=== PATIENT | male | born 1955 | race Caucasian/White ===

== ENCOUNTER 2018-03-07 21:22 | Inpatient (IN) ==
[2018-03-07] MEDS ORDERED: Nitroglycerin 25 MG/250 ML INFUS..BTL IVC ONE (21:27)
[2018-03-07] MEDS ORDERED: Furosemide 40 MG in 0.9 % Sodium Chloride 50 ML IVPB STA ×2 (21:36→22:32)
--- NOTE | 2018-03-07 21:39 | Emergency Department Note ---
Disposition Clinical Impression: Flash pulmonary edema, Shortness of breath Disposition: Admitted As Inpatient Condition: Fair Time of Disposition: 23:25 SOB HPI - General Time Seen by Provider: 03/07/18 21:33 Source: patient, EMS Mode of arrival: EMS Limitations: no limitations Nursing Notes Reviewed: Yes Vital Signs Reviewed: Yes - History of Present Illness 62-year-old male history of congestive heart failure, pacemaker, atrial fibrillation on Xarelto presents emergency department via EMS for difficulty in breathing. Patient was at [employer] game in approximately 2 hours prior to arrival began developing significant shortness of breath. He is reported to have foaming at the mouth with frothy sputum. Patient was evaluated immediately in the trauma resuscitation room. He was reported to be hypoxic 85% on non- rebreather. He had administered to nitroglycerin tablets by himself and took for tablets of 81 mg aspirin. He reports a similar history in the past and was given Lasix. Patient denies any chest pain at this time. He denies any recent illness. States his blood pressures have been well-controlled recently. No recent changes to his diet. She has leg swelling that appears at baseline. Concern for flash pulmonary edema patient will be placed on BiPAP and nitroglycerin drip as long as blood pressure tolerates. Pt Subjective Complaint: shortness of breath - Related Data Home Medications Medication Instructions Recorded Confirmed Amiodarone [Cordarone] 100 mg PO DAILY 01/09/15 03/07/18 Atorvastatin [Lipitor] 40 mg PO HS 01/09/15 03/07/18 Carvedilol 12.5 mg PO BID 01/09/15 03/07/18 Furosemide [Lasix] 20 mg PO DAILY 01/09/15 03/07/18 Losartan [Cozaar] 50 mg PO BID 01/09/15 03/07/18 Nitroglycerin [Nitrostat] 0.4 mg SL Q5-6MIN PRN 01/09/15 03/07/18 Rivaroxaban [Xarelto] 20 mg PO DAILY 01/09/15 03/07/18 Spironolactone [Aldactone] 12.5 mg PO DAILY 01/09/15 03/07/18 Allergies Allergy/AdvReac Type Severity Reaction Status Date / Time Penicillins [PCN] Allergy Rash Verified 01/09/15 11:28 lisinopril AdvReac Cough Verified 01/09/15 11:28 All systems ED: reviewed and negative except as stated. Review of Systems: As Per HPI Constitutional: Denies: fever, chills ENT ED: Denies: congestion Cardiovascular: Denies: chest pain Respiratory: Reports: dyspnea. Denies: cough Gastrointestinal: Denies: abdominal pain, nausea, vomiting Genitourinary: Denies: dysuria Integumentary: Denies: rash, abrasion Neurological: Denies: headache Past Medical History - Past Medical History Attestation: Yes The following information was validated with the patient. Source: patient Medical history: Reports: atrial fibrillation, cardiomyopathy, diabetes, hypertension Surgical history: Reports: appendectomy Psychiatric history: Reports: no psych history - Social History Smoking Status: Never smoker Smokeless Tobacco Status: No Alcohol use: Reports: none Drug use: Reports: none Physical Exam - General Limitations: no limitations General appearance: alert, in distress (Respiratory), obese - Head Head exam: atraumatic, normocephalic, normal inspection - Eye Eye exam: Present: normal appearance, PERRL, EOMI - ENT ENT exam: normal exam, normal oropharynx, mucous membranes moist - Neck Neck exam: Present: normal inspection, full ROM, trachea midline - Chest Chest inspection: Present: normal inspection, symmetric chest wall rise, other (Pacemaker left chest wall) - Respiratory Respiratory exam: Present: respiratory distress, other (Crackles diffusely parker ateral) - Cardiovascular Cardiovascular exam: Present: normal rhythm, tachycardia, normal heart sounds - Expanded Cardiovascular Exam Peripheral pulses: 2+: radial (R), radial (L) - Abdominal Exam Abdominal exam: Present: soft (Obese), Non-Tender, normal bowel sounds. Absent: tenderness, distention, guarding, rebound, rigidity - Extremities Exam Extremities exam: Present: normal inspection, full ROM, pedal edema (Symmetrical bilaterally, pitting). Absent: tenderness - Back Exam Back exam: Present: normal inspection, full ROM. Absent: tenderness - Neurological Exam Neurological exam: Present: alert, oriented X3 - Psychiatric Psychiatric exam: Present: normal affect, normal mood - Skin Skin exam: Present: intact, normal color, diaphoresis Course Course Narrative: Patient presents with his sudden onset shortness of breath 2 hours prior to arrival. Suspect flash pulmonary edema. Patient was placed on BiPAP. Nitroglycerin drip initiated at 50. Will continue to watch his blood pressure and treat his symptoms. Workup including troponin, EKG labs BNP and chest x- ray. - Reevaluation(s) Reevaluation #1: After titration with nitroglycerin patient's symptoms are improving. Patient appears significantly improved. Patient was also given Lasix. He is tolerating the BiPAP. Patient will be admitted for flash pulmonary edema. He has had already taken aspirin at home and was not administered any additional here. Review of his labs shows elevated BNP 500. The lactate is elevated 4.1 with elevation of the troponin 0.1 likely due to demand ischemia. He denies any chest pain. Will continue to monitor. - Consultations Consultation #1: Spoke with on-call hospitalist kusum Pérez to admit for flash pulm edema. No further orders at this time Vital Signs Respiratory Rate 30 03/07/18 21:30 Blood Pressure 149/111 03/07/18 21:30 O2 Sat by Pulse Oximetry 94 03/07/18 21:30 Temperature 97.6 F 03/07/18 21:33 Pulse Rate 85 03/07/18 23:54 Respiratory Rate 24 03/07/18 23:54 Blood Pressure 91/67 03/07/18 23:54 O2 Sat by Pulse Oximetry 99 03/07/18 23:54 Oxygen Delivery Oxygen Delivery Bipap Shortness of Breath/Dyspnea - MDM Narrative Medical decision making narrative: Patient was discussed with my attending physician who agrees with ED management and final disposition. They independently evaluated the patient. Please refer to their attestation to this encounter for additional information. This note was generated by [employer] voice recognition software and as a result grammatical or spelling errors may occur using this program. - Medical Records Medical records reviewed: Yes I reviewed the patient's medical records. - Lab Data Lab results reviewed: Yes I reviewed the patient's lab results. Result diagrams: 03/07/18 22:00 03/07/18 22:00 Lab Results 03/07/18 03/07/18 03/07/18 Range/Units 22:00 22:00 22:00 WBC 13.5 H (4.3-11.1) K/mcL RBC 5.58 H (4.19-5.50) M/mcL Hgb 18.2 H (12.9-16.9) g/dL Hct 54.9 H (37.5-50.1) % MCV 98.4 (83.0-100.0) fL MCH 32.6 (28.0-33.3) pg MCHC 33.2 (31.6-35.5) g/dL RDW 12.8 (11.5-14.5) % Plt Count 198 (140-400) K/mcL MPV 10.7 (9.4-12.4) fL Immature Gran % 1.0 (0-4) % Seg Neutrophils % 67.4 % Lymphocytes % 25.2 % Monocytes % 5.8 % Eosinophils % 0.0 % Basophils % 0.6 % Neutrophils # 9.1 H (1.6-8.9) K/mcL Lymphocytes # 3.4 (0.6-4.6) K/mcL Monocytes # 0.8 (0.0-1.3) K/mcL Eosinophils # 0.0 (0.0-0.6) K/mcL Basophils # 0.1 (0.0-0.2) K/mcL Nucleated RBCs/100 WBC 0.1 H (0) /100 WBC Sodium 138 (136-145) mEq/L Potassium 4.0 (3.5-5.1) mEq/L Chloride 105 (98-107) mEq/L Carbon Dioxide 22 L (23-29) mEq/L BUN 25 H (8-23) mg/dL Creatinine 1.34 H (0.70-1.30) mg/dL Est GFR ( Amer) > 60 (> 60) Est GFR (Non-Af Amer) 54 L (> 60) BUN/Creatinine Ratio 19 (6-26) Glucose 303 H (70-105) mg/dL Calculated Osmolality 302 H (280-300) Lactic Acid 4.1 H* (0.5-2.2) mmol/L Calcium 9.5 (8.6-10.3) mg/dL Troponin I 0.10 H* (< 0.04) ng/mL B-Natriuretic Peptide (Less than 100) pg/mL Urine Color (Yellow) Urine Clarity (Clear) Urine pH (5.0-8.0) pH Units Ur Specific [place] (1.010-1.025) Urine Protein (Neg-Trace) mg/dL Urine Glucose (UA) (Normal) mg/dL Urine Ketones (Negative) mg/dL Urine Blood (Negative) Urine Nitrite (Negative) Urine Bilirubin (Negative) Urine Urobilinogen (Normal) mg/dL Ur Leukocyte Esterase (Negative) Urine Microscopic RBC (0-3) per hpf Urine Microscopic WBC (0-3) per hpf Ur Squamous Epith Cells (None-Few) per lpf Urine Bacteria (None-Few) per hpf Hyaline Casts (None-Few) per lpf Ur Culture Indicated? (NO) 03/07/18 03/07/18 03/07/18 Range/Units 22:00 22:16 23:50 WBC (4.3-11.1) K/mcL RBC (4.19-5.50) M/mcL Hgb (12.9-16.9) g/dL Hct (37.5-50.1) % MCV (83.0-100.0) fL MCH (28.0-33.3) pg MCHC (31.6-35.5) g/dL RDW (11.5-14.5) % Plt Count (140-400) K/mcL MPV (9.4-12.4) fL Immature Gran % (0-4) % Seg Neutrophils % % Lymphocytes % % Monocytes % % Eosinophils % % Basophils % % Neutrophils # (1.6-8.9) K/mcL Lymphocytes # (0.6-4.6) K/mcL Monocytes # (0.0-1.3) K/mcL Eosinophils # (0.0-0.6) K/mcL Basophils # (0.0-0.2) K/mcL Nucleated RBCs/100 WBC (0) /100 WBC Sodium (136-145) mEq/L Potassium (3.5-5.1) mEq/L Chloride (98-107) mEq/L Carbon Dioxide (23-29) mEq/L BUN (8-23) mg/dL Creatinine (0.70-1.30) mg/dL Est GFR ( Amer) (> 60) Est GFR (Non-Af Amer) (> 60) BUN/Creatinine Ratio (6-26) Glucose (70-105) mg/dL Calculated Osmolality (280-300) Lactic Acid 3.1 H (0.5-2.2) mmol/L Calcium (8.6-10.3) mg/dL Troponin I (< 0.04) ng/mL B-Natriuretic Peptide 539 H (Less than 100) pg/mL Urine Color Yellow (Yellow) Urine Clarity Clear (Clear) Urine pH 5.5 (5.0-8.0) pH Units Ur Specific [place] 1.016 (1.010-1.025) Urine Protein Negative (Neg-Trace) mg/dL Urine Glucose (UA) Normal (Normal) mg/dL Urine Ketones Negative (Negative) mg/dL Urine Blood Moderate H (Negative) Urine Nitrite Negative (Negative) Urine Bilirubin Negative (Negative) Urine Urobilinogen Normal (Normal) mg/dL Ur Leukocyte Esterase Negative (Negative) Urine Microscopic RBC 15-30 H (0-3) per hpf Urine Microscopic WBC 0-3 (0-3) per hpf Ur Squamous Epith Cells Few (None-Few) per lpf Urine Bacteria None Seen (None-Few) per hpf Hyaline Casts None Seen (None-Few) per lpf Ur Culture Indicated? NO (NO) - Radiology Data Radiology results reviewed: Yes I reviewed the patient's radiology results. Chest X-Ray 03/07/18 21:35 IMPRESSION: 1. Diffuse lung consolidation and vascular indistinctness compatible with pulmonary edema. 2. Superimposed left basilar atelectasis or airspace disease. D/ / 03/07/2018 22:53:36 Austen Hwang MD / olivia Interpreting Provider: Austen Hwang MD - EKG Data EKG attestation: Yes I reviewed and interpreted this EKG. EKG results narrative: EKG performed 2233 ventricular paced rhythm 101 beats per minute, no Sgarbossa criteria. Attestation Statement - Attestation Attestation: I, Zachery Babin DO, examined this patient [id number] and my medical decision-making was reviewed with Fabrice Roblero DO , Resident Physician. I agree with the documented findings, disposition and treatment plan as described except to the extent set forth below. Please see my progress notes for details.
[2018-03-07] MEDS ORDERED: Furosemide 40 MG/4 ML VIAL ONE ×2 (21:40→22:40)
[2018-03-07] MEDS: Nitroglycerin 25 MG/250 ML INFUS..BTL IVC SCH (21:45)
[2018-03-07] MEDS ORDERED: Nitroglycerin 0.4 MG TAB.SUBL SL ONE (21:47)
[2018-03-07 22:13] LABS: Basophils # 0.1 K/mcL (0.0-0.2); Basophils % 0.6 %; Hematocrit 54.9 % (37.5-50.1); Hemoglobin 18.2 g/dL (12.9-16.9); Lymphocytes # 3.4 K/mcL (0.6-4.6); Lymphocytes % 25.2 %; Mean Corpuscular HGB Conc 33.2 g/dL (31.6-35.5); Mean Corpuscular Hemoglobin 32.6 pg (28.0-33.3); Mean Corpuscular Volume 98.4 fL (83.0-100.0); Mean Platelet Volume 10.7 fL (9.4-12.4); Monocytes # 0.8 K/mcL (0.0-1.3); Monocytes % 5.8 %; Neutrophils # 9.1 K/mcL (1.6-8.9); Nucleated Red Blood Cells 0.1 /100 WBC (0); Platelet Count 198 K/mcL (140-400); Red Blood Count 5.58 M/mcL (4.19-5.50); Red Cell Distribution Width 12.8 % (11.5-14.5); Segmented Neutrophils % 67.4 %
[2018-03-07 22:26] LABS: Bilirubin,Urine Negative (Negative); Blood,Urine Moderate (Negative); Clarity,Urine Clear (Clear); Color,Urine Yellow (Yellow); Glucose,Urine (UA) Normal (Normal); Ketones,Urine Negative (Negative); Leukocyte Esterase,Urine Negative (Negative); Nitrite,Urine Negative (Negative); PH,Urine 5.5 pH Units (5.0-8.0); Protein,Urine Negative (Neg-Trace); Specific Gravity,Urine 1.016 (1.010-1.025); Urobilinogen,Urine Normal (Normal)
[2018-03-07 22:29] LABS: Bacteria,Urine None Seen per hpf (None-Few); Hyaline Casts,Urine None Seen per lpf (None-Few); RBC,Urine 15-30 per hpf (0-3); Squamous Epithelial Cell,Urine Few per lpf (None-Few); WBC,Urine 0-3 per hpf (0-3)
[2018-03-07 22:34] LABS: BUN/Creatinine Ratio 19 (6-26); Blood Urea Nitrogen 25 mg/dL (8-23); Calcium 9.5 mg/dL (8.6-10.3); Carbon Dioxide 22 mEq/L (23-29); Chloride 105 mEq/L (98-107); Glucose 303 mg/dL (70-105); Osmolality,Calculated 302 (280-300); Sodium 138 mEq/L (136-145); eGFR For Non-African Americans 54 (> 60)
[2018-03-07] MEDS ORDERED: Furosemide 40 MG/4 ML VIAL IVP ONE (22:40)
--- NOTE | 2018-03-07 22:58 | Emergency Department Note ---
Disposition Clinical Impression: Flash pulmonary edema, Shortness of breath Disposition: Admitted As Inpatient Condition: Fair Referrals: NONE,PCP [Non-Partnered Physician] - Time of Disposition: 22:59 General Adult HPI - General Chief complaint: ED Shortness of Breath/Dyspnea Time Seen by Provider: 03/07/18 21:33 Source: patient, EMS Mode of arrival: EMS Limitations: no limitations - History of Present Illness Pain Scale: 0 - Related Data Home Medications Medication Instructions Recorded Confirmed Amiodarone [Cordarone] 100 mg PO DAILY 01/09/15 03/07/18 Atorvastatin [Lipitor] 40 mg PO HS 01/09/15 03/07/18 Carvedilol 12.5 mg PO BID 01/09/15 03/07/18 Furosemide [Lasix] 20 mg PO DAILY 01/09/15 03/07/18 Losartan [Cozaar] 50 mg PO BID 01/09/15 03/07/18 Nitroglycerin [Nitrostat] 0.4 mg SL Q5-6MIN PRN 01/09/15 03/07/18 Rivaroxaban [Xarelto] 20 mg PO DAILY 01/09/15 03/07/18 Spironolactone [Aldactone] 12.5 mg PO DAILY 01/09/15 03/07/18 Allergies Allergy/AdvReac Type Severity Reaction Status Date / Time Penicillins [PCN] Allergy Rash Verified 01/09/15 11:28 lisinopril AdvReac Cough Verified 01/09/15 11:28 Constitutional: Denies: fever, chills ENT ED: Denies: congestion Cardiovascular: Denies: chest pain Respiratory: Reports: dyspnea. Denies: cough Gastrointestinal: Denies: abdominal pain, nausea, vomiting Genitourinary: Denies: dysuria Integumentary: Denies: rash, abrasion Neurological: Denies: headache Past Medical History - Past Medical History Medical history: Reports: atrial fibrillation, cardiomyopathy, diabetes, hypertension Surgical history: Reports: appendectomy Psychiatric history: Reports: no psych history - Social History Smoking Status: Never smoker Smokeless Tobacco Status: No Alcohol use: Reports: none Drug use: Reports: none Physical Exam - General Limitations: no limitations General appearance: alert, in distress (Respiratory), obese Course Vital Signs Respiratory Rate 30 03/07/18 21:30 Blood Pressure 149/111 03/07/18 21:30 O2 Sat by Pulse Oximetry 94 03/07/18 21:30 Temperature 97.6 F 03/07/18 21:33 Pulse Rate 97 03/07/18 23:06 Respiratory Rate 26 03/07/18 23:06 Blood Pressure 102/72 03/07/18 23:06 O2 Sat by Pulse Oximetry 97 03/07/18 23:06 Oxygen Delivery Oxygen Delivery Bipap Medical Decision Making - Lab Data Result diagrams: 03/07/18 22:00 03/07/18 22:00 Lab Results 03/07/18 03/07/18 03/07/18 Range/Units 22:00 22:00 22:00 WBC 13.5 H (4.3-11.1) K/mcL RBC 5.58 H (4.19-5.50) M/mcL Hgb 18.2 H (12.9-16.9) g/dL Hct 54.9 H (37.5-50.1) % MCV 98.4 (83.0-100.0) fL MCH 32.6 (28.0-33.3) pg MCHC 33.2 (31.6-35.5) g/dL RDW 12.8 (11.5-14.5) % Plt Count 198 (140-400) K/mcL MPV 10.7 (9.4-12.4) fL Immature Gran % 1.0 (0-4) % Seg Neutrophils % 67.4 % Lymphocytes % 25.2 % Monocytes % 5.8 % Eosinophils % 0.0 % Basophils % 0.6 % Neutrophils # 9.1 H (1.6-8.9) K/mcL Lymphocytes # 3.4 (0.6-4.6) K/mcL Monocytes # 0.8 (0.0-1.3) K/mcL Eosinophils # 0.0 (0.0-0.6) K/mcL Basophils # 0.1 (0.0-0.2) K/mcL Nucleated RBCs/100 WBC 0.1 H (0) /100 WBC Sodium 138 (136-145) mEq/L Potassium 4.0 (3.5-5.1) mEq/L Chloride 105 (98-107) mEq/L Carbon Dioxide 22 L (23-29) mEq/L BUN 25 H (8-23) mg/dL Creatinine 1.34 H (0.70-1.30) mg/dL Est GFR ( Amer) > 60 (> 60) Est GFR (Non-Af Amer) 54 L (> 60) BUN/Creatinine Ratio 19 (6-26) Glucose 303 H (70-105) mg/dL Calculated Osmolality 302 H (280-300) Lactic Acid 4.1 H* (0.5-2.2) mmol/L Calcium 9.5 (8.6-10.3) mg/dL Troponin I 0.10 H* (< 0.04) ng/mL B-Natriuretic Peptide (Less than 100) pg/mL Urine Color (Yellow) Urine Clarity (Clear) Urine pH (5.0-8.0) pH Units Ur Specific [place] (1.010-1.025) Urine Protein (Neg-Trace) mg/dL Urine Glucose (UA) (Normal) mg/dL Urine Ketones (Negative) mg/dL Urine Blood (Negative) Urine Nitrite (Negative) Urine Bilirubin (Negative) Urine Urobilinogen (Normal) mg/dL Ur Leukocyte Esterase (Negative) Urine Microscopic RBC (0-3) per hpf Urine Microscopic WBC (0-3) per hpf Ur Squamous Epith Cells (None-Few) per lpf Urine Bacteria (None-Few) per hpf Hyaline Casts (None-Few) per lpf Ur Culture Indicated? (NO) 03/07/18 03/07/18 Range/Units 22:00 22:16 WBC (4.3-11.1) K/mcL RBC (4.19-5.50) M/mcL Hgb (12.9-16.9) g/dL Hct (37.5-50.1) % MCV (83.0-100.0) fL MCH (28.0-33.3) pg MCHC (31.6-35.5) g/dL RDW (11.5-14.5) % Plt Count (140-400) K/mcL MPV (9.4-12.4) fL Immature Gran % (0-4) % Seg Neutrophils % % Lymphocytes % % Monocytes % % Eosinophils % % Basophils % % Neutrophils # (1.6-8.9) K/mcL Lymphocytes # (0.6-4.6) K/mcL Monocytes # (0.0-1.3) K/mcL Eosinophils # (0.0-0.6) K/mcL Basophils # (0.0-0.2) K/mcL Nucleated RBCs/100 WBC (0) /100 WBC Sodium (136-145) mEq/L Potassium (3.5-5.1) mEq/L Chloride (98-107) mEq/L Carbon Dioxide (23-29) mEq/L BUN (8-23) mg/dL Creatinine (0.70-1.30) mg/dL Est GFR ( Amer) (> 60) Est GFR (Non-Af Amer) (> 60) BUN/Creatinine Ratio (6-26) Glucose (70-105) mg/dL Calculated Osmolality (280-300) Lactic Acid (0.5-2.2) mmol/L Calcium (8.6-10.3) mg/dL Troponin I (< 0.04) ng/mL B-Natriuretic Peptide 539 H (Less than 100) pg/mL Urine Color Yellow (Yellow) Urine Clarity Clear (Clear) Urine pH 5.5 (5.0-8.0) pH Units Ur Specific [place] 1.016 (1.010-1.025) Urine Protein Negative (Neg-Trace) mg/dL Urine Glucose (UA) Normal (Normal) mg/dL Urine Ketones Negative (Negative) mg/dL Urine Blood Moderate H (Negative) Urine Nitrite Negative (Negative) Urine Bilirubin Negative (Negative) Urine Urobilinogen Normal (Normal) mg/dL Ur Leukocyte Esterase Negative (Negative) Urine Microscopic RBC 15-30 H (0-3) per hpf Urine Microscopic WBC 0-3 (0-3) per hpf Ur Squamous Epith Cells Few (None-Few) per lpf Urine Bacteria None Seen (None-Few) per hpf Hyaline Casts None Seen (None-Few) per lpf Ur Culture Indicated? NO (NO) Critical Care Time Critical Care Time: Yes Total Critical Care Time: 60 Attestation: Critical care performed: Time is exclusive of separately billable procedures. Time includes: direct patient care, patient reassessment, coordination of patient care, interpretation of data (laboratory data, radiology data, and respiratory data), review of patient's medical records, medical consultation and documentation of patient care. Procedures included in critical care time: Procedures excluded from critical care time: Attestation Statement - Attestation Attestation: Zachery Hodge DO, examined this patient [id number] and my medical decision-making was reviewed with Fabrice Roblero DO , Resident Physician. I agree with the documented findings, disposition and treatment plan as described except to the extent set forth below. Please see my progress notes for details. 62-year-old male presents to the emergency room with what appears to be flash pulmonary edema. Patient was at his grandson's basketball game when he started to feel like he could not breathe and had to go outside. Shortly after that the patient was having significant work of breathing. He happened to have taken 2 nitroglycerin prior to coming to the emergency department. He also took an aspirin. Patient was working excessively to breathe on arrival. Increased accessory muscle use. Pulse ox was in the 80s. He had frothy white sputum. Patient has had this happen one other time in the past according to the . Immediately the IV was evaluated and nitroglycerin drip was ordered as well as BiPAP. During the nitroglycerin being started the patient's physical exam did show coarse crackles diffusely across along avila. Patient had diaphoretic skin. He denied any falls trauma or injury. Denied any active chest pain. Denied any fevers or chills. Denied any headache or vision change. Nitroglycerin was started at 50 mcg/m and the BiPAP was applied. Patient had difficulty with tolerating the BiPAP secondary to the fluid accumulation in the lungs. The nitroglycerin was titrated up his blood pressure is tolerating. Screening labs including a CBC, chemistry, troponin, BNP along with urinalysis will be collected. Chest x-ray and medication intervention are ordered. Disposition pending the full workup and treatment course. Lasix 80 mg IV will be given as well. Patient will require admission. Plasma 60 minutes of critical care provider the patient's treatment course and medical intervention. No other acute findings at this time. 2215 IV in the right upper extremity came out secondary the patient pulling and moving. 2 ultrasound-guided IVs were started in bilateral arms. Medications were infused to these. Patient's chest x-ray shows diffuse pulmonary edema with white out on bilateral lungs. The BiPAP applied he is tolerating the treatment course much better at this time. Disposition will be admission and close monitoring. Family informed and comfortable with this plan. Patient is otherwise stable. Labs to be reviewed. 2315 Patient was discussed with the hospitalist Dr. Freed. Detailed review the presentation symptoms in the medical intervention were discussed. Patient has already taken an aspirin prior to coming in and does not require any further medications. His BMP, troponin, lactic acid are all elevated most likely secondary to the stress response that he was involved in here today. Patient has clinical flash pulmonary edema and chest x-ray and labs that concur. Patient is otherwise clinically stable this point with a heart rate of 91. Blood pressure stabilized and nitroglycerin drip is still on. Patient will be admitted to the hospital for continued management. No other acute issues noted this point. Patient will be monitored here in the emergency room until the admission process is completed.
[2018-03-08] MEDS ORDERED: Nitroglycerin 0.4 MG TAB.SUBL SL PRN (02:33)
--- NOTE | 2018-03-08 02:50 | Internal Med History&Physical ---
Date of Encounter: 03/08/18 Time of Encounter: 02:48 Internal Medicine - H&P: HPI Chief complaint: SOB Admitted From: Home Plans for Post Hospital Care: Home History of present illness: Gorna Chester is a 62-year-old man with a history of congestive heart failure status post ICD and atrial fibrillation on rivaroxaban who reportedly has suffered flash pulmonary edema episodes in the past. He comes in now by EMS due to complaint of acute onset difficulty breathing. The patient was at a basketball game approximately 2 hours prior to arrival and then developed significant shortness of breath with foaming at the mouth as frothy sputum was noticed. He was hypoxic to 85% on nonrebreather. The patient had taken nitroglycerin tablets by himself and also aspirin. He denied chest pain at the time and neck nausea his blood pressures have been well controlled at home with no changes to his diet. He was placed on BiPAP and received a total of 80 mg furosemide with nitroglycerin drip which improved his symptoms significantly. EKG showed sinus tachycardia and there was a mild troponin elevation at 0.1. BNP was elevated at just above 500 as well as a lactate level of 4.1. Chest x- ray reviewed independently by me showed diffuse vascular congestion compatible with pulmonary edema. He is admitted for further care. At this time he reports feeling well and has no complaints whatsoever. Past Med Surg Social Fam HX - Past Medical History Medical history: atrial fibrillation, cardiomyopathy, diabetes, hypertension Psychiatric history: no psych history - Past Surgical History Surgical History: appendectomy Additional surgical history: Bi-v AICD, ablation - Social History Smoking Status: Never smoker Smokeless Tobacco Status: No Alcohol use: rarely Drug use: none - Family History Mother Hx Family Cardiac Disorders: Yes (HTN) Father Name: es chester Age at : 80 Hx Family Cardiac Disorders: Yes (CHF) Internal Medicine - H&P: Meds Amiodarone [Cordarone] 100 mg PO DAILY 01/09/15 [History] Atorvastatin [Lipitor] 40 mg PO HS 01/09/15 [History] Carvedilol 12.5 mg PO BID 01/09/15 [History] Furosemide [Lasix] 20 mg PO DAILY 01/09/15 [History] Losartan [Cozaar] 50 mg PO BID 01/09/15 [History] Nitroglycerin [Nitrostat] 0.4 mg SL Q5-6MIN PRN 01/09/15 [History] Rivaroxaban [Xarelto] 20 mg PO DAILY 01/09/15 [History] Spironolactone [Aldactone] 12.5 mg PO DAILY 01/09/15 [History] Allergy/AdvReac Type Severity Reaction Status Date / Time Penicillins [PCN] Allergy Rash Verified 01/09/15 11:28 lisinopril AdvReac Cough Verified 01/09/15 11:28 All Systems PM: A 10-system review of systems was performed and is negative for pertinent findings except as documented above in the HPI. - Constitutional Vitals: Temp Pulse Resp BP Pulse Ox 97.7 F 83 16 103/78 94 03/08/18 01:36 03/08/18 01:36 03/08/18 01:36 03/08/18 01:36 03/08/18 01:36 Exam: Vitals: Reviewed General: Well-developed and well-appearing in no acute distress lying comfortably in bed on nasal cannula. Skin: Warm and supple. HEENT: Moist mucous membranes. No conjunctivae pallor. Neck: No lymphadenopathy. No JVD. No carotid bruits. No palpable thyroid. Chest: Normal thoracic expansion. Normal breath sounds. Clear to auscultation. Heart: No rubs or murmurs. Abdomen: Non-distended, soft and non-tender to palpation. Extremities: No clubbing, cyanosis. 1+ edema. No calf tenderness. Normal distal pulses. Neurological: Awake, alert and oriented to person, place and time. No focal deficits. Psych: Affect appropriate. Internal Med - H&P Results - Labs CBC & Chem 7: 03/07/18 22:00 03/07/18 22:00 Labs: Short CBC 03/07/18 Range/Units 22:00 WBC 13.5 H (4.3-11.1) K/mcL Hgb 18.2 H (12.9-16.9) g/dL Hct 54.9 H (37.5-50.1) % Plt Count 198 (140-400) K/mcL Neutrophils # 9.1 H (1.6-8.9) K/mcL BMP 03/07/18 22:00 Sodium 138 Potassium 4.0 Chloride 105 Carbon Dioxide 22 L BUN 25 H Creatinine 1.34 H Glucose 303 H Calcium 9.5 Cardiac Enzymes 03/07/18 Range/Units 22:00 Troponin I 0.10 H* (< 0.04) ng/mL Urine 03/07/18 Range/Units 22:16 Urine Color Yellow (Yellow) Urine Clarity Clear (Clear) Urine pH 5.5 (5.0-8.0) pH Units Ur Specific [place] 1.016 (1.010-1.025) Urine Protein Negative (Neg-Trace) mg/dL Urine Glucose (UA) Normal (Normal) mg/dL - Impressions ITS Impressions Chest X-Ray 03/07/18 21:35 IMPRESSION: 1. Diffuse lung consolidation and vascular indistinctness compatible with pulmonary edema. 2. Superimposed left basilar atelectasis or airspace disease. D/ / 03/07/2018 22:53:36 Austen Hwang MD / [facility] Interpreting Provider: Austen Hwang MD - Assessment and plan (1) Flash pulmonary edema Current Visit: Yes Status: Acute Assessment and plan: He has received a total of 80 mg furosemide IVP. He has clinically improve and nitroglycerin can be discontinued. Continue daily furosemide but increase dose from 20 to 40 mg. Check echo to assess EF and evaluate for valvulopathy. (2) Acute respiratory failure with hypoxia Current Visit: Yes Status: Acute Assessment and plan: Secondary to flash pulmonary edema. We will continue BiPAP all night long. He also has concomitant GARFIELD she uses an NIPPV at home. (3) Heart failure Current Visit: Yes Status: Chronic Assessment and plan: Continue diuretic, ARB/ACEI and spironolactone. Will order a repeat echo as was last done in 2017. Qualifiers: Heart failure type: systolic Heart failure chronicity: acute on chronic Qualified Code(s): I50.23 - Acute on chronic systolic (congestive) heart failure (4) HTN (hypertension) Current Visit: Yes Status: Acute Assessment and plan: Well controlled on medications to be continued. Qualifiers: Hypertension type: essential hypertension Qualified Code(s): I10 - Essential (primary) hypertension (5) Afib Current Visit: Yes Status: Acute Assessment and plan: Rate controlled. Will continue rivaroxaban home medication. Qualifiers: Atrial fibrillation type: paroxysmal Qualified Code(s): I48.0 - Paroxysmal atrial fibrillation - Time Spent With Patient Total time spent is greater than 50% in coordination of care (as documented) at patient's floor/unit and/or counseling patient: Greater than 35 minutes
[2018-03-08 05:01] LABS: Basophils % 0.2 %; Hematocrit 48.1 % (37.5-50.1); Immature Granulocytes % 0.4 % (0-4); Lymphocytes # 0.9 K/mcL (0.6-4.6); Lymphocytes % 5.3 %; Mean Corpuscular HGB Conc 33.7 g/dL (31.6-35.5); Mean Corpuscular Hemoglobin 32.4 pg (28.0-33.3); Mean Corpuscular Volume 96.2 fL (83.0-100.0); Mean Platelet Volume 10.4 fL (9.4-12.4); Monocytes % 5.8 %; Neutrophils # 14.7 K/mcL (1.6-8.9); Platelet Count 152 K/mcL (140-400); Red Cell Distribution Width 12.7 % (11.5-14.5); Segmented Neutrophils % 88.3 %
[2018-03-08 05:06] LABS: Hemoglobin 16.2 g/dL (12.9-16.9)
[2018-03-08 05:22] LABS: BUN/Creatinine Ratio 27 (6-26); Blood Urea Nitrogen 30 mg/dL (8-23); Calcium 9.1 mg/dL (8.6-10.3); Carbon Dioxide 23 mEq/L (23-29); Chloride 107 mEq/L (98-107); Glucose 131 mg/dL (70-105); Osmolality,Calculated 296 (280-300); Potassium 4.1 mEq/L (3.5-5.1); Sodium 139 mEq/L (136-145); eGFR For Non-African Americans > 60 (> 60)
[2018-03-08 05:25] LABS: Troponin I 0.15 ng/mL (< 0.04)
[2018-03-08] MEDS: Nitroglycerin 25 MG/250 ML INFUS..BTL IVC SCH (07:30)
[2018-03-08] MEDS: Furosemide 40 MG TABLET PO SCH (08:10)
[2018-03-08] MEDS: Spironolactone 25 MG TABLET PO SCH (08:10)
[2018-03-08] MEDS: Aspirin 81 MG TAB.CHEW PO SCH (08:11)
[2018-03-08] MEDS: *HR* Amiodarone 200 MG TABLET PO SCH (08:11)
[2018-03-08] MEDS: cefTRIAXone 1,000 MG in Water for inj. (sterile) 20 ML 10 ML IVP SCH (08:11)
[2018-03-08] MEDS ORDERED: Doxycycline 100 MG in 0.9 % Sodium Chloride Mini Bag 100 ML IVPB SCH (09:00)
[2018-03-08] MEDS ORDERED: *HR* Rivaroxaban 10 MG TABLET PO SCH (09:00)
--- NOTE | 2018-03-08 09:45 | Internal Med Progress Note ---
Hospitalist Progress Note - Encounter Date of Encounter: 03/08/18 Time of Encounter: 08:00 - Subjective Interval History: Patient was seen and examined at bedside, reports that he feels much better after treatment with Lasix. He denies orthopnea or PND prior to his symptoms began. He reports that his symptoms began suddenly while he was at his grandson 's basketball game and blames it on him being excited. Reports that he has had similar episode one year ago and was diagnosed with heart failure. He is compliant with his medications however reports that he stopped taking aspirin due to unknown reasons. He reports that he is compliant with fluid restriction and denies lower extremity edema. - Exam Vitals: Temp Pulse Resp BP Pulse Ox 98.2 F 83 20 107/78 96 03/08/18 04:59 03/08/18 07:21 03/08/18 07:21 03/08/18 07:21 03/08/18 07:21 Exam: General: Patient is alert, oriented, no acute distress, obese, speaks in full sentences Head: atraumatic, normocephalic, Eye: normal appearance, PERRL, no scleral icterus, no conjunctival injection ENT: mucous membranes moist, normal external ear exam Neck: normal inspection, trachea midline, full ROM, no carotid bruits Chest: normal inspection, symmetric chest rise Respiratory: Distant breath sounds secondary to body habitus, bilateral crackles in the posterior lung alexander, no wheezing Cardiovascular: Distant heart sounds secondary to body habitus, Regular rate and rhythm. s1 and s2 No clicks, rubs, gallops, or murmors. Abdomen: Bowel sounds present normoactive x-4 quadrants. Abdomen is soft, nondistended. no Epigastric tenderness. No guarding or rebound. No organomegaly noted, obese musculoskeletal: Spontaneously moving all extremities. no edema, no calf tenderness Skin: warm, dry, intact. Neuro: Alert and oriented x4. No focal deficit Psych: Patient's affect is normal - Assessment and Plan (1) Flash pulmonary edema Current Visit: Yes Status: Acute Assessment and Plan: Patient with art failure reduced EF 20% status post AICD placement- in flash pulmonary edema Symptoms improved with Lasix 80 mg IV along with nitroglycerin We will continue Lasix 40 mg IV twice a day Will obtain echocardiogram Cardiology consultedfollows with Dr. Abernathy as outpatient Fluid restriction Strict intake and output Daily weights TTE 04/2016 LVEF 20%. Severely dilated left ventricle. Severe global left ventricular systolic dysfunction. Moderate left ventricular diastolic dysfunction. Atypical septal motion consistent with paced rhythm. Grossly, the right ventricle appeared normal in size and function. Severely dilated left atrium. Mild mitral regurgitation. Unable to estimate RVSP due to lack of TR jet. A device lead was visualized in the right atrium and right ventricle. Consider a repeat limited study with (2) Acute respiratory failure with hypoxia Current Visit: Yes Status: Acute Assessment and Plan: Secondary to above Management as per above BiPAP as needed for respiratory distress. (3) Acute on chronic heart failure with reduced ejection fraction and diastolic dysfunction Current Visit: Yes Status: Acute Assessment and Plan: Acute on chronic heart failure with reduced ejection fraction 20% Will obtain echo Continue Coreg, losartan, spironolactone and Lasix Management as per above (4) CAP (community acquired pneumonia) Current Visit: Yes Status: Acute Assessment and Plan: Questionable left basilar infiltrate Leukocytosis trended up to 16 Started on ceftriaxone and doxycycline Urine antigens Influenza- negative Will de-escalate as per cultures IMPRESSION: 1. Diffuse lung consolidation and vascular indistinctness compatible with pulmonary edema. 2. Superimposed left basilar atelectasis or airspace disease. (5) Elevated troponin I level Current Visit: Yes Status: Acute Assessment and Plan: Elevated troponin is most likely secondary to supply versus demand mismatch in setting of flash pulmonary edema cannot rule out underlying CAD- chest pain-free Troponin 0.10 to 0.15 Patient reports that he was told to take aspirin every day however he stopped taking aspirin. Started on aspirin 81 mg daily Continue Lipitor Cardiology consulted will follow recommendations (6) HTN (hypertension) Current Visit: Yes Status: Acute Assessment and Plan: Controlled. (7) Afib Current Visit: Yes Status: Acute Assessment and Plan: Chronic atrial fibrillation We will continue his xarelto Currently rate controlled with home dose beta blockers (8) Obesity (BMI 30-39.9) Current Visit: Yes Status: Acute Assessment and Plan: Was counseled Will get nutrition consult Daily weights (9) GARFIELD on CPAP Current Visit: Yes Status: Acute Assessment and Plan: Continue CPAP at night's at home setting (10) DVT prophylaxis Current Visit: Yes Status: Acute Assessment and Plan: On Xarelto - Time Spent with Patient Total time spent is greater than 50% in coordination of care (as documented) at patient's floor/unit and/or counseling patient: Internal Medicine: Result - Labs CBC & Chem 7: 03/08/18 04:46 03/08/18 04:46 Labs: Short CBC 03/07/18 03/08/18 Range/Units 22:00 04:46 WBC 13.5 H 16.6 H (4.3-11.1) K/mcL Hgb 18.2 H 16.2 D (12.9-16.9) g/dL Hct 54.9 H 48.1 (37.5-50.1) % Plt Count 198 152 (140-400) K/mcL Neutrophils # 9.1 H 14.7 H (1.6-8.9) K/mcL BMP 03/07/18 03/08/18 22:00 04:46 Sodium 138 139 Potassium 4.0 4.1 Chloride 105 107 Carbon Dioxide 22 L 23 BUN 25 H 30 H Creatinine 1.34 H 1.12 Glucose 303 H 131 H Calcium 9.5 9.1 Cardiac Enzymes 03/07/18 03/08/18 Range/Units 22:00 04:46 Troponin I 0.10 H* 0.15 H* (< 0.04) ng/mL Urine 03/07/18 Range/Units 22:16 Urine Color Yellow (Yellow) Urine Clarity Clear (Clear) Urine pH 5.5 (5.0-8.0) pH Units Ur Specific [place] 1.016 (1.010-1.025) Urine Protein Negative (Neg-Trace) mg/dL Urine Glucose (UA) Normal (Normal) mg/dL - Impressions Impressions Chest X-Ray 03/07/18 21:35 IMPRESSION: 1. Diffuse lung consolidation and vascular indistinctness compatible with pulmonary edema. 2. Superimposed left basilar atelectasis or airspace disease. D/ / 03/07/2018 22:53:36 Austen Hwang MD / bc[facility] Interpreting Provider: Austen Hwang MD Consult Discharge Plan - Plan (4) CAP (community acquired pneumonia) Qualifiers: Laterality: unspecified laterality Qualified Code(s): J18.9 - Pneumonia, unspecified organism (6) HTN (hypertension) Qualifiers: Hypertension type: essential hypertension Qualified Code(s): I10 - Essential (primary) hypertension (7) Afib Qualifiers: Atrial fibrillation type: paroxysmal Qualified Code(s): I48.0 - Paroxysmal atrial fibrillation
[2018-03-08 09:56] LABS: Influenza A PCR Negative (Negative); Influenza B PCR Negative (Negative); Resp. Syncytial Virus PCR Negative (Negative)
--- NOTE | 2018-03-08 13:07 | Electrophysiology Consult Note ---
Date of Encounter: 03/08/18 Time of Encounter: 13:02 Assessment and Plan (1) Biventricular automatic implantable cardioverter defibrillator in situ Current Visit: No Status: Acute (2) Flash pulmonary edema Current Visit: Yes Status: Acute Etiology may be secondary to known severe cardiomyopathy but has not has an ischemic evaluation in over 5 years. Would recommend he consider a heart cath. (3) Acute on chronic heart failure with reduced ejection fraction and diastolic dysfunction Current Visit: Yes Status: Acute Discussion w patient/family: The assessment and plan as outlined above was discussed with the patient and/or family members who expressed understanding and agreement. All questions were answered. Thank you for involving us in the care of your patient. Please call with any questions. History of Present Illness Consult date: 03/08/18 Requesting physician: Inna Freed Consult reason: Flash pulmonary edema Chief complaint: SOB History of present illness: Mr. Chester is a 62 year old male with a history of nonischemic cardiomyopathy, s/p BIV ICD. He also has a history of PVCs, s/p ablation and PAF. He presented with abrupt SOB while at a basketball game. Symptoms came on quickly. Denies chest pain. He has not had any ischemic workup since his initial diagnosis of myopathy several years ago. Past Med Surg Social Fam HX - Past Medical History Medical history: atrial fibrillation, cardiomyopathy, diabetes, hypertension Psychiatric history: no psych history - Past Surgical History Surgical History: appendectomy Additional surgical history: Bi-v AICD, ablation - Social History Smoking Status: Never smoker Smokeless Tobacco Status: No Alcohol use: rarely Drug use: none - Family History Mother Hx Family Cardiac Disorders: Yes (HTN) Father Name: es chester Age at : 80 Hx Family Cardiac Disorders: Yes (CHF) Medications and Allergies Amiodarone [Cordarone] 100 mg PO DAILY 01/09/15 [History] Atorvastatin [Lipitor] 40 mg PO HS 01/09/15 [History] Carvedilol 12.5 mg PO BID 01/09/15 [History] Furosemide [Lasix] 20 mg PO DAILY 01/09/15 [History] Losartan [Cozaar] 50 mg PO BID 01/09/15 [History] Nitroglycerin [Nitrostat] 0.4 mg SL Q5-6MIN PRN 01/09/15 [History] Rivaroxaban [Xarelto] 20 mg PO DAILY 01/09/15 [History] Spironolactone [Aldactone] 12.5 mg PO DAILY 01/09/15 [History] Allergy/AdvReac Type Severity Reaction Status Date / Time Penicillins [PCN] Allergy Rash Verified 01/09/15 11:28 lisinopril AdvReac Cough Verified 01/09/15 11:28 All Systems Review: The remainder of the systems were reviewed and are negative Physical Examination Vital Signs, Last 4 Hours Temp Pulse Resp BP Pulse Ox 03/08/18 11:18 98.1 F 77 20 95/68 94 General: Conversant, No Apparent Distress HEENT: Atraumatic, Normocephaly, Mucus Membranes Moist Neck: No JVD, Normal carotid pulses Cardiac: Reg Rate and Rhythm, Normal S1 and S2, No Murmur Lungs: Normal Breath Sounds, No Wheeze, Rales, Rhonchi Neuro: Alert and responsive, No focal deficits noted Abdomen: Soft, Non-Tender Skin: No rashes noted on visualized skin Musculoskeletal: No Chest Wall Tenderness Extremities: No Clubbing, No Cyanosis, No Edema, Normal Pulses Results 03/08/18 04:46 03/08/18 04:46 Lab Results 03/07/18 03/07/18 03/07/18 22:00 22:00 22:00 WBC 13.5 H Hgb 18.2 H Hct 54.9 H Plt Count 198 Sodium 138 Potassium 4.0 Chloride 105 Carbon Dioxide 22 L BUN 25 H Creatinine 1.34 H Glucose 303 H Calcium 9.5 Troponin I 0.10 H* B-Natriuretic Peptide 539 H 03/08/18 03/08/18 04:46 04:46 WBC 16.6 H Hgb 16.2 D Hct 48.1 Plt Count 152 Sodium 139 Potassium 4.1 Chloride 107 Carbon Dioxide 23 BUN 30 H Creatinine 1.12 Glucose 131 H Calcium 9.1 Troponin I 0.15 H* B-Natriuretic Peptide - EKG Interpretation EKG results cardiology: personally reviewed (V paced) Consult Discharge Plan - Plan Referrals: Akash Beth MD [Primary Care Provider] -
[2018-03-08] MEDS ORDERED: Perflutren Lipid Microsphere 1.3 ML in 0.9 % Sodium Chloride 8.7 ML IVP ONE (14:28)
[2018-03-09 04:32] LABS: Hematocrit 41.3 % (37.5-50.1); Mean Corpuscular HGB Conc 34.4 g/dL (31.6-35.5); Mean Corpuscular Hemoglobin 32.7 pg (28.0-33.3); Mean Corpuscular Volume 95.2 fL (83.0-100.0); Mean Platelet Volume 10.9 fL (9.4-12.4); Platelet Count 135 K/mcL (140-400); Red Blood Count 4.34 M/mcL (4.19-5.50)
[2018-03-09 04:33] LABS: Hemoglobin 14.2 g/dL (12.9-16.9)
[2018-03-09 04:49] LABS: BUN/Creatinine Ratio 31 (6-26); Blood Urea Nitrogen 31 mg/dL (8-23); Calcium 8.8 mg/dL (8.6-10.3); Carbon Dioxide 24 mEq/L (23-29); Chloride 108 mEq/L (98-107); Glucose 126 mg/dL (70-105); Magnesium 1.8 mg/dL (1.6-2.6); Osmolality,Calculated 298 (280-300); Potassium 3.9 mEq/L (3.5-5.1); Sodium 140 mEq/L (136-145); eGFR For Non-African Americans > 60 (> 60)
[2018-03-09 09:36] LABS: INR 1.3; Prothrombin Time 15.1 Seconds (9.4-12.1)
[2018-03-09] MEDS: Aspirin 81 MG TAB.CHEW PO SCH (09:36)
[2018-03-09] MEDS: Spironolactone 25 MG TABLET PO SCH (09:38)
[2018-03-09] MEDS: *HR* Amiodarone 200 MG TABLET PO SCH (09:39)
[2018-03-09] MEDS: Furosemide 40 MG TABLET PO SCH (09:41)
[2018-03-09] MEDS: cefTRIAXone 1,000 MG in Water for inj. (sterile) 20 ML 10 ML IVP SCH (09:41)
--- NOTE | 2018-03-09 10:02 | Internal Med Progress Note ---
Hospitalist Progress Note - Encounter Date of Encounter: 03/09/18 Time of Encounter: 08:00 - Subjective Interval History: Patient was seen and examined at bedside. is at bedside. All questions answered. He is for left heart catheterization today. He understands that we have to hold his xarelto for the procedure and he is in agreement. He has had no overnight events. Reports resolution of his shortness of breath. Denies fever, chills, nausea, vomiting, diarrhea. Has had no chest pain, shortness of breath or palpitations - Exam Vitals: Temp Pulse Resp BP Pulse Ox 97.7 F 72 14 116/89 97 03/09/18 08:12 03/09/18 08:12 03/09/18 08:12 03/09/18 08:12 03/09/18 08:12 Exam: General: Patient is alert, oriented, no acute distress, obese, speaks in full sentences Head: atraumatic, normocephalic, Eye: normal appearance, PERRL, no scleral icterus, no conjunctival injection ENT: mucous membranes moist, normal external ear exam Neck: normal inspection, trachea midline, full ROM, no carotid bruits Chest: normal inspection, symmetric chest rise Respiratory: Distant breath sounds secondary to body habitus, bilateral crackles in the posterior lung alexander ( improved) , no wheezing Cardiovascular: Distant heart sounds secondary to body habitus, Regular rate and rhythm. s1 and s2 No clicks, rubs, gallops, or murmors. Abdomen: Bowel sounds present normoactive x-4 quadrants. Abdomen is soft, nondistended. no Epigastric tenderness. No guarding or rebound. No organomegaly noted, obese musculoskeletal: Spontaneously moving all extremities. no edema, no calf tenderness Skin: warm, dry, intact. Neuro: Alert and oriented x4. No focal deficit Psych: Patient's affect is normal - Assessment and Plan (1) Flash pulmonary edema Current Visit: Yes Status: Acute Assessment and Plan: Patient with art failure reduced EF 20% status post AICD placement- in flash pulmonary edema Symptoms improved with Lasix 80 mg IV along with nitroglycerin Currently on Lasix 40 mg by mouth daily Echocardiogram pending Cardiology on board For [facility] on 03/09 Fluid restriction Strict intake and output Daily weights TTE 04/2016 LVEF 20%. Severely dilated left ventricle. Severe global left ventricular systolic dysfunction. Moderate left ventricular diastolic dysfunction. Atypical septal motion consistent with paced rhythm. Grossly, the right ventricle appeared normal in size and function. Severely dilated left atrium. Mild mitral regurgitation. Unable to estimate RVSP due to lack of TR jet. A device lead was visualized in the right atrium and right ventricle. Consider a repeat limited study with (2) Acute respiratory failure with hypoxia Current Visit: Yes Status: Acute Assessment and Plan: Secondary to above Management as per above BiPAP as needed for respiratory distress. (3) Acute on chronic heart failure with reduced ejection fraction and diastolic dysfunction Current Visit: Yes Status: Acute Assessment and Plan: Acute on chronic heart failure with reduced ejection fraction 20% echo pending Continue Coreg, losartan, spironolactone and Lasix Management as per above (4) CAP (community acquired pneumonia) Current Visit: Yes Status: Acute Assessment and Plan: Questionable left basilar infiltrate Leukocytosis trended up to 16 and has resolved Started on ceftriaxone Urine antigens- negative- doxycycline discontinued Influenza- negative Will de-escalate as per cultures IMPRESSION: 1. Diffuse lung consolidation and vascular indistinctness compatible with pulmonary edema. 2. Superimposed left basilar atelectasis or airspace disease. (5) Elevated troponin I level Current Visit: Yes Status: Acute Assessment and Plan: Elevated troponin is most likely secondary to supply versus demand mismatch in setting of flash pulmonary edema cannot rule out underlying CAD- chest pain-free Troponin 0.10 to 0.15 to 0.14 Patient reports that he was told to take aspirin every day however he stopped taking aspirin. Started on aspirin 81 mg daily Continue Lipitor Cardiology on board for [facility] on 03/09 (6) HTN (hypertension) Current Visit: Yes Status: Acute Assessment and Plan: Controlled. (7) Afib Current Visit: Yes Status: Acute Assessment and Plan: Chronic atrial fibrillation We will continue his xarelto - on hold for [facility] Currently rate controlled with home dose beta blockers (8) Obesity (BMI 30-39.9) Current Visit: Yes Status: Acute Assessment and Plan: Was counseled Will get nutrition consult Daily weights (9) GARFIELD on CPAP Current Visit: Yes Status: Acute Assessment and Plan: Continue CPAP at night's at home setting (10) DVT prophylaxis Current Visit: Yes Status: Acute Assessment and Plan: On Xarelto- on hold SCds - Time Spent with Patient Total time spent is greater than 50% in coordination of care (as documented) at patient's floor/unit and/or counseling patient: Internal Medicine: Result - Labs CBC & Chem 7: 03/09/18 03:43 03/09/18 03:43 Labs: Short CBC 03/09/18 Range/Units 03:43 WBC 8.0 D (4.3-11.1) K/mcL Hgb 14.2 D (12.9-16.9) g/dL Hct 41.3 (37.5-50.1) % Plt Count 135 L (140-400) K/mcL BMP 03/09/18 03:43 Sodium 140 Potassium 3.9 Chloride 108 H Carbon Dioxide 24 BUN 31 H Creatinine 1.00 Glucose 126 H Calcium 8.8 Cardiac Enzymes 03/08/18 Range/Units 13:57 Troponin I 0.14 H* (< 0.04) ng/mL - ABG Interpretation ABG results: PT/INR, D-dimer PT 15.1 Seconds (9.4-12.1) H 03/09/18 09:12 - Impressions Impressions Echocardiogram 03/08/18 02:35 Impressions: LVEF 30%. Severely dilated left ventricle. Severe global left ventricular systolic dysfunction. Moderate left ventricular diastolic dysfunction. Moderately dilated left atrium. Normal right ventricular structure and function. Mild mitral regurgitation. Unable to estimate RVSP due to lack of TR jet. Left Ventricular Wall Motion: Rest Echo Findings The apex, apical inferior, mid inferior, basal inferior, apical anterior, mid anterior, basal anterior, apical septal, mid inferior septal, basal inferior septal, apical lateral, mid anterior lateral, basal anterior lateral, mid anterior septal, mid inferior lateral, basal anterior septal and basal inferior lateral avila were hypokinetic. Findings: Study Quality * Technically adequate exam. ECG Findings * Paced rhythm. Left Ventricle * LVEF 30%. * Normal LV wall thickness. * Severely dilated left ventricle. * Severe global left ventricular systolic dysfunction. * Moderate left ventricular diastolic dysfunction. * There is no LV thrombus. * Definity echo contrast was used. * Atypical septal motion consistent with paced rhythm. Right Ventricle * Normal right ventricular structure and function. Left Atrium * Moderately dilated left atrium. Right Atrium * Normal right atrial size. Interatrial Septum * Interatrial septum not well evaluated. Aortic Valve * Trileaflet aortic valve. * No aortic stenosis. * No aortic regurgitation. Mitral Valve * Normal mitral valve structure. * No mitral stenosis. * Mild mitral regurgitation. Tricuspid Valve * Normal tricuspid valve structure. * No tricuspid stenosis. * Trace tricuspid regurgitation. * Unable to estimate RVSP due to lack of TR jet. Pulmonic Valve * Pulmonic valve is not well visualized. * No pulmonic stenosis. * No pulmonic regurgitation. Aorta * Normally sized aortic root. Pericardium * The pericardium appears normal. IVC * The IVC is not well evaluated. A device lead was visualized in the right atrium and right ventricle. Consult Discharge Plan - Plan Referrals: Akash Beth MD [Primary Care Provider] - (4) CAP (community acquired pneumonia) Qualifiers: Laterality: unspecified laterality Qualified Code(s): J18.9 - Pneumonia, unspecified organism (6) HTN (hypertension) Qualifiers: Hypertension type: essential hypertension Qualified Code(s): I10 - Essential (primary) hypertension (7) Afib Qualifiers: Atrial fibrillation type: paroxysmal Qualified Code(s): I48.0 - Paroxysmal atrial fibrillation
[2018-03-09] MEDS ORDERED: *HR* Midazolam HCl 2 MG/2 ML VIAL ONE (14:24)
[2018-03-09] MEDS ORDERED: *HR* Heparin 10,000 UNIT/10 ML VIAL ONE (14:25)
[2018-03-09] MEDS ORDERED: Nitroglycerin 1,000 MCG/10 ML VIAL IV ONE (14:25)
[2018-03-09] MEDS ORDERED: Heparin 1,000 UNITS/500 mL 500 ML ONE (14:25)
[2018-03-09] MEDS ORDERED: ISOVUE-370 200 ML INFUS..BTL ONE (14:25)
[2018-03-09] MEDS ORDERED: 0.9 % Sodium Chloride 1,000 ML ONE (14:25)
--- NOTE | 2018-03-09 15:02 | Pre-Sedation Evaluation ---
Pre-sedation evaluation - Pre-sedation checklist Date of procedure: 03/09/18 Procedure: Left Heart Catheterization Recent Vitals: Last Vital Signs Temp 97.7 F 03/09/18 11:22 Pulse 75 03/09/18 11:22 Resp 14 03/09/18 08:12 BP 110/78 03/09/18 11:22 Pulse Ox 93 03/09/18 11:22 H&P (including ROS) documented in medical record: Yes Previous reaction to sedatives/anesthetics: No Dietary Status: NPO after Midnight Airway Assessment: Patient can open mouth completely, TMJ function normal Dentition: full dentition Possible difficult airway: No ASA Classification *see protocol: CLASS III-Severe systemic disease Plan of Care: Pt appropriate candidate for procedure/moderate/conscious sedation, Risks/benefits of procedure/sedation discussed w/ patient/family, If not NPO; Risk of intake outweiged by necessity to perform procedure Cardiac Registry (Cardio Only) - Functional Capacity Functional Capacity: >=4 METS without symptoms - Clincal Frailty Scale Clinical Frailty Scale: Managing Well
--- NOTE | 2018-03-09 15:06 | Electrocardiograph Report ---
[address] [place], [place] [address] Test Date: 2018-03-07 Pat Name: Goran Chester Department: [id number] Room: 2NE21 Gender: M Supervisor Nutritional Yeast: : 1955 Requested By: Jenn Huitron Order Number: [id number] Reading MD: Melchor Johnson Measurements Intervals [place] Rate: 114 P: 47 CA: 128 QRS: -76 QRSD: 170 T: 101 QT: 377 QTc: 520 Interpretive Statements Ventricular-paced complexes No further analysis attempted due to paced rhythm Artifact Electronically Signed On 03-09-2018 15:05:20 EST by Melchor Johnson
--- NOTE | 2018-03-09 15:12 | Electrocardiograph Report ---
[address] [place], [place] [address] Test Date: 2018-03-07 Pat Name: Goran Chester Department: [id number] Room: 2NE21 Gender: M Guest Services Coordinator: : 1955 Requested By: Zachery Babin Order Number: [id number] Reading MD: Melchor Johnson Measurements Intervals [place] Rate: 101 P: 51 SD: 34 QRS: -78 QRSD: 160 T: 99 QT: 405 QTc: 525 Interpretive Statements Ventricular-paced complexes No further analysis attempted due to paced rhythm Electronically Signed On 03-09-2018 15:11:11 EST by Melchor Johnson
--- NOTE | 2018-03-09 16:04 | Invasive Diagnostic Lab Proc ---
Name: Goran Chester Date of Study: 03/09/2018 Date: 1955 Ht: 72.8in Medical Record#: [id number] Age: 62 Wt: 286.16lb Gender: Male BSA: 2.5 Order #: [id number] BMI: 37.93 Physicians Procedure Physician: Jan Gandhi DO Referring MD: Referring MD: Staff Name Position Time In Baldomero Ines RT (R) Monitor 03:06 PM [facility], Ines RT (R) Scrub 03:06 PM Ailin Bloom RN Life Coach 03:06 PM Indications Indication Non-Stemi Procedures Performed Procedure L HRT ARTERY/VENTRICLE ANGIO Pre-Procedure Checklist Informed consent is complete signed and on chart. H&P is on chart. ID band is on and ID verified with patient. Patient NPO for procedure The procedure was described for the patient and questions were answered. Blood Pressure: 116/89 ECG is on chart. Rhythm: NSR Plan of Care Patient will tolerate the procedure without complications. Adequate level of comfort will be maintained. Hemodynamics will remain stable Patient will recover from procedure without complications. Respiratory function will be maintained. Cardiac rhythm will remain stable. Patient temperature will be maintained. Patient and/or family have verbalized understanding of the procedure. Patient Education Chief Complaint/Reason for Test: Cardiac Cath Developmental Category: Adult (18-64 years) Developmentally Appropriate for Age: Yes Learning Barriers: None Education Needs: Procedure Education Method: Verbal Information Taught: Cardiac Cath Educational Evaluation: Able to repeat information Intravenous Access Time IV Size Location DC'd Fluid/Drip Rate Units RN 02:55 PM 18g 1 03/27" Patent On Arrival Lt Antecubital 0.9NaCl 25 ml/hr Ailin Bloom RN Allergies Penicillin lisinopril Vital Signs Time BP (mmHg) HR (bpm) O2 Sat. RR (bpm) LOC 03:07 PM / % 5 = Fully awake and oriented or at pre-proc level 03:07 PM / % 4 = Oriented but drowsy 03:01 PM 124 / 83 67 96 % 11 03:06 PM 107 / 71 74 93 % 16 03:11 PM 105 / 66 72 94 % 19 03:16 PM 116 / 56 68 95 % 13 03:21 PM 123 / 78 67 93 % 20 03:26 PM 108 / 68 72 88 % 22 03:22 PM / % 4 = Oriented but drowsy Procedural Medications Time Medication Dose Units Method Given By 03:06 PM Oxygen 2 L/min nasal cannula Ailin Bloom RN 03:07 PM Versed 2 mg Intravenous Ailin Bloom RN 03:12 PM Lidocaine 2% 10 ml Subcutaneous Jan Gandhi DO ASA Classification: CLASS III- Severe systemic disease (i.e. prior AMI, diabetes with vascular complications, morbid obesity) Paul Score Preprocedure Postprocedure Activity 2- Moves 4 extremities sustained head lift Activity 2- Moves 4 extremities sustained head lift Circulation 2- SBP +/= 20 points of pre-anesthetic level Circulation 2- SBP +/= 20 points of pre-anesthetic level Consciousness 2- Awake and alert oriented x 3 Consciousness 2- Awake and alert oriented x 3 O2 Saturation 2- Able to maintain O2 satruation of 92% on room air O2 Saturation 2- Able to maintain O2 satruation of 92% on room air Respiratory 2- Able to deep breathe and cough well Respiratory 2- Able to deep breathe and cough well Total Score 10 Total Score 10 Contrast Agent: Isovue Diagnostic Contrast: 50 ml Total Contrast: 50 ml Fluoro Dose: 5469 mGy Procedure Log Time Note Enter By 03:00 PM Vitals capture started with the following parameters, Patient=Adult, Interval=5 min, Initial Lmaaketv=199 mmHg, Deflation Rate=5 mmHg, Cuff placed on Right Arm 03:00 PM CathStat 03:01 PM HR=67 bpm, GPNN=681/83 mmhg, SpO2=96.0 %, Resp=11 B/min 03:06 PM HR=74 bpm, TYJT=072/71 mmhg, SpO2=93.0 %, Resp=16 B/min 03:06 PM Pt arrived to boat laborer 2 at 15:06 tsites 03:06 PM Physician arrived 15:06 tsites 03:06 PM Meet and greet completed tsites 03:06 PM Sign in performed according to hospital policy. Informed consent was obtained. tsites 03:06 PM Procedure start 15:06 tsites 03:06 PM Patient charges- Angio tray pack, Navilyst 3mm J, Pulse Oximetry and ACIST tubing and transducer tsites 03:06 PM Ines Alexandre RT (R) Position: Monitor Time in: 15:06 tsites 03:06 PM Sites, Ines RT (R) Position: Scrub Time in: 15:06 tsites 03:06 PM Ailin Bloom RN Position: Life Coach Time in: 15:06 tsites 03:06 PM Case Delayed no tsites 03:06 PM Hair removed from procedure site in procedure lab using clippers. Bilateral groin prepped with Chloraprep by Ines Alexandre RT (R), then patient was draped. Skin intact. tsites 03:07 PM Time: 15:06 Oxygen on at 2 L/min per nasal cannula by Ailin Bloom RN tsites 03:07 PM Time: 15:07 Versed 2 mg Intravenous Given by Ailin Bloom RN tsites 03:07 PM Time: 15:07LOC: 5 = Fully awake and oriented or at pre-proc level tsites 03:07 PM Time: 15:07 Patient comfortable and pain free: Yes tsites 03:08 PM Recorded ECG: HR=73 Condition=Condition 1 03:08 PM Pressure channel 2 zeroed. 03:11 PM Time out was performed according to hospital policy. Conscious sedation and anesthesia was achieved (see medication log with in this report above) tsites 03:11 PM HR=72 bpm, FJUO=795/66 mmhg, SpO2=94.0 %, Resp=19 B/min 03:12 PM ASA Class CLASS III- Severe systemic disease (i.e. prior AMI, diabetes with vascular complications, morbid obesity) tsites 03:12 PM Time out was performed according to hospital policy. Conscious sedation and anesthesia was achieved (see medication log with in this report above) tsites 03:12 PM Time: 15:12 10 ml Lidocaine 2% to right groin Subcutaneous Given by Jan Gandhi DO tsites 03:15 PM Micro-Introducer Kit utilized for sheath placement tsites 03:15 PM Access obtained by percutaneous puncture. 6Fr 10cm Terumo Mize sheath placed in right Femoral artery. [id number] tsites 03:15 PM Recorded Pressure: Ao, HR=70, Condition=Condition 1 (Aorta) Ao 69/53/61 03:16 PM 6Fr FR 4 catheter inserted over the wire DNC tsites 03:16 PM HR=68 bpm, KVJU=205/56 mmhg, SpO2=95.0 %, Resp=13 B/min 03:16 PM Wire removed, intact. RCA angiography performed in multiple views. tsites 03:16 PM Wire reinserted. tsites 03:17 PM Catheter removed tsites 03:18 PM Recorded Pressure: Ao, HR=73, Condition=Condition 1 (Aorta) Ao 79/59/69 03:19 PM 6Fr FL 4 catheter inserted over the wire DN tsites 03:19 PM Wire removed, intact. tsites 03:19 PM LCA angiography performed in multiple views. tsites 03:21 PM HR=67 bpm, DOQQ=758/78 mmhg, SpO2=93.0 %, Resp=20 B/min 03:21 PM Coronary Dominance: right tsites 03:22 PM bolus angiogram of right femoral artery tsites 03:22 PM Time: 15:07 Patient comfortable and pain free: Yes tsites 03:22 PM Procedure completed at 15:22 03/09/2018 tsites 03:22 PM Wire reinserted. Catheter and wire removed, intact. tsites 03:23 PM Did you address CHRISTIANA flow and Dominance? Yes tsites 03:23 PM Sign out completed: Radiation Dose 496.23 mGy, 5469.45 cGy/cm2 Fluoro Time: 1.2 Isovue 370 - 200ml contrast 50 ml given by Jan Gandhi DO. Complications: None. The patient was discharged out of the laborer/key man in stable condition. Cardiac Rehab Consult needed: NoConfirmed administered medications: Yes tsites 03:23 PM Isovue 370 - 200ml,1 Bottle(s) used. tsites 03:24 PM Arterial sheath pulled using manual compression and V+ Pad for 16 minutes by Ines Davis RT (R) tsites 03:25 PM Estimated Blood Loss: minimal tsites 03:26 PM Post ECG NSR tsites 03:26 PM 15:26 Post Pulses Bilateral DP & PT 1+ tsites 03:26 PM HR=72 bpm, MCMZ=785/68 mmhg, SpO2=88.0 %, Resp=22 B/min 03:26 PM 15:26 Post Pulses Bilateral radial 2+ tsites 03:26 PM Post Blood Pressure 108/68 tsites 03:27 PM Information taught tsites 03:27 PM Education needs Procedure, Plan of Care, and Responsibilities of Patient in Care tsites 03:27 PM Learning barriers :None tsites 03:27 PM Education Methods Verbal tsites 03:27 PM Education evaluation Able to repeat information tsites 03:27 PM Family placed in consult room. tsites 03:37 PM Time: 15:22 Patient comfortable and pain free: Yes tsites 03:37 PM Time: 15:22LOC: 4 = Oriented but drowsy tsites 03:47 PM Report given to RN Pt taken to 2NE Room #21. 15:47 tsites 03:47 PM Patient out of room: 15:47 tsites 03:47 PM Site status No bleeding/hematoma - Rt Groin as reported by Yamilet Mortensen RN at 15:47 tsites 03:47 PM Opsite applied tsites Complications Complication None Hemodynamics Pressures Site Systolic/A Wave Diastolic/V Wave Mean AO 69 53 61 AO 79 59 69 Post Procedure Information Blood Pressure: 108/68 mmHg Rhythm: NSR Post procedural instructions were given Closure Device Time Device Success/Fail 03/09/2018 3:27:00 PM Manual Compression Successful Site Checks Time Location Status Staff Sheath In? Note 03:47 PM Rt Groin No bleeding/hematoma Yamilet Mortensen RN Pulses Time Site Pre-Procedure Post-Procedure Note 03/09/2018 2:55:00 PM Bilateral DP & PT 1+ 03/09/2018 2:55:00 PM Bilateral radial 2+ 3:26:00 PM Bilateral DP & PT 1+ 3:26:00 PM Bilateral radial 2+ Updated by Ines Davis RT (R) on 03/09/2018 3:51:30 PM RT Neeta electronically signed on 03/09/2018 3:54:18 PM with status of Final
[2018-03-10 04:32] LABS: Basophils % 0.4 %; Hematocrit 43.4 % (37.5-50.1); Hemoglobin 14.8 g/dL (12.9-16.9); Immature Granulocytes % 0.2 % (0-4); Lymphocytes # 1.1 K/mcL (0.6-4.6); Lymphocytes % 13.4 %; Mean Corpuscular HGB Conc 34.1 g/dL (31.6-35.5); Mean Corpuscular Hemoglobin 32.6 pg (28.0-33.3); Mean Corpuscular Volume 95.6 fL (83.0-100.0); Mean Platelet Volume 10.5 fL (9.4-12.4); Monocytes # 0.8 K/mcL (0.0-1.3); Monocytes % 9.9 %; Neutrophils # 6.4 K/mcL (1.6-8.9); Platelet Count 135 K/mcL (140-400); Red Blood Count 4.54 M/mcL (4.19-5.50); Red Cell Distribution Width 12.9 % (11.5-14.5); Segmented Neutrophils % 76.1 %
[2018-03-10 04:43] LABS: BUN/Creatinine Ratio 30 (6-26); Blood Urea Nitrogen 27 mg/dL (8-23); Calcium 9.3 mg/dL (8.6-10.3); Carbon Dioxide 23 mEq/L (23-29); Chloride 104 mEq/L (98-107); Glucose 95 mg/dL (70-105); Osmolality,Calculated 289 (280-300); Potassium 3.7 mEq/L (3.5-5.1); Sodium 137 mEq/L (136-145); eGFR For Non-African Americans > 60 (> 60)
[2018-03-10 04:44] LABS: INR 1.1; Prothrombin Time 12.9 Seconds (9.4-12.1)
[2018-03-10 07:13] VITALS: BP 123/95
--- NOTE | 2018-03-10 09:35 | Cardiology Progress Note ---
Date of Encounter: 03/10/18 Time of Encounter: 09:00 Assessment and Plan (1) Flash pulmonary edema Current Visit: Yes Status: Acute Per cardiology: -Admitted with flash pulmonary edema. -Was given IV lasix. -Denies shortness of breath today. -PO lasix has been increased from previous home dose. (2) Non-ischemic cardiomyopathy Current Visit: Yes Status: Chronic Per cardiology: -Known NICM. -TTE this admission with LVEF 30%, global. -Currently euvolemic on exam. -ON BB, ARB, aldactone, and lasix. -CHF education reviewed at length with patient. Strict i/os, fluid restriction, daily weights. -Has BIV ICD. -Continue lasix 40mg po daily. Continue aldactone. -Patient educated when to call cardiology. -Cardiology will sign off, will arrange close outpatient follow up. (3) Biventricular automatic implantable cardioverter defibrillator in situ Current Visit: No Status: Chronic Per cardiology: -Known BIV ICD. -Follows with Dr.John Abernathy. (4) Afib Current Visit: Yes Status: Chronic Per cardiology: -Known history of a.fib. -ON BB, amio. -ON xarelto for anticoagulation. Qualifiers: Atrial fibrillation type: paroxysmal Qualified Code(s): I48.0 - Paroxysmal atrial fibrillation (5) Elevated troponin I level Current Visit: Yes Status: Acute Per cardiology: -Troponins flat and adynamic in the setting of chf. -S/p C yesterday with angiographically normal coronaries. -Right groin access site without hematoma or ecchymosis. Right groin site management education reviewed with patient. -Patient works a very strenuous job, recommend 2 weeks off of work. -Demand ischemia, no cardiac rehab consult warranted. Discussion w patient/family: The assessment and plan as outlined above was discussed with the patient and/or family members who expressed understanding and agreement. All questions were answered. Thank you for involving us in the care of your patient. Please call with any questions. Discussed and reviewed with . Subjective Principal diagnosis: flash pulmonary edema Interval history: Patient is s/p C yesterday. Denies complaints. Denies shortness of breath. Denies issues walking, using right leg. Objective Vital Signs, Last 4 Hours Temp Pulse Resp BP Pulse Ox 03/10/18 07:08 98.0 F 81 25 123/95 94 General: Conversant, No Apparent Distress HEENT: Atraumatic, Normocephaly, Mucus Membranes Moist Neck: No JVD, Normal carotid pulses Cardiac: Reg Rate and Rhythm, Normal S1 and S2, No Murmur Lungs: Normal Breath Sounds, No Wheeze, Rales, Rhonchi Neuro: Alert and responsive, No focal deficits noted Abdomen: Soft, Non-Tender Skin: No rashes noted on visualized skin, Other (Right groin access site without ecchymosis, hematome. ) Musculoskeletal: No Chest Wall Tenderness Extremities: No Clubbing, No Cyanosis, No Edema, Normal Pulses Results 03/10/18 03:32 03/10/18 03:32 Impressions Chest X-Ray 03/07/18 21:35 IMPRESSION: 1. Diffuse lung consolidation and vascular indistinctness compatible with pulmonary edema. 2. Superimposed left basilar atelectasis or airspace disease. D/ / 03/07/2018 22:53:36 Austen Hwang MD / bcarter Interpreting Provider: Austen Hwang MD Active Medications Amiodarone HCl (Cordarone) 100 mg PO DAILY TONY Stop: 09/07/18 09:01 Last Admin: 03/09/18 09:39 Dose: 100 mg Aspirin (Aspirin) 81 mg PO DAILY TONY Stop: 09/07/18 09:01 Last Admin: 03/09/18 09:36 Dose: 81 mg Atorvastatin Calcium (Lipitor) 40 mg PO HS TONY Stop: 09/07/18 21:01 Last Admin: 03/09/18 19:25 Dose: 40 mg Carvedilol (Coreg) 12.5 mg PO BIDWM TONY Stop: 09/07/18 08:01 Last Admin: 03/09/18 16:10 Dose: 12.5 mg Furosemide (Lasix) 40 mg PO DAILY TONY Stop: 09/07/18 09:01 Last Admin: 03/09/18 09:41 Dose: 40 mg Ceftriaxone Sodium 1,000 mg/ (Sterile Water) 10 mls @ 600 mls/hr IVP DAILY TONY Stop: 09/07/18 09:01 Last Admin: 03/09/18 09:41 Dose: 600 mls/hr Losartan Potassium (Cozaar) 50 mg PO DAILY [facility]; Protocol Stop: 09/07/18 09:01 Last Admin: 03/09/18 09:41 Dose: 50 mg Nitroglycerin (Nitroglycerin) 0.4 mg SL Q5MIN PRN PRN Reason: Chest Pain Stop: 09/07/18 02:34 Rivaroxaban (Xarelto) 20 mg PO DAILY [facility] Stop: 09/07/18 09:01 Last Admin: 03/08/18 08:11 Dose: 20 mg Spironolactone (Aldactone) 12.5 mg PO DAILY [facility] Stop: 09/07/18 09:01 Last Admin: 03/09/18 09:38 Dose: 12.5 mg Laboratory Tests 03/07/18 03/08/18 03/08/18 22:00 04:46 13:57 Hgb Creatinine Troponin I 0.10 H* 0.15 H* 0.14 H* 03/10/18 03/10/18 03:32 03:32 Hgb 14.8 Creatinine 0.90 Troponin I - Imaging and Cardiology Chest Xray: report reviewed Echo: report reviewed Cardiac cath: report reviewed - EKG Interpretation EKG results cardiology: other (Telemetry reviewed with average HR previous 12 ho urs noted to be 70, paced rhythm. PVCs noted.) Consult Discharge Plan - Plan Additional Instructions: Return to work in 2 weeks. No driving for 3 days after procedure. Referrals: Akash Beth MD [Primary Care Provider] -
[2018-03-10] MEDS: *HR* Amiodarone 200 MG TABLET PO SCH (09:43)
[2018-03-10] MEDS: Furosemide 40 MG TABLET PO SCH (09:45)
[2018-03-10] MEDS: Spironolactone 25 MG TABLET PO SCH (09:45)
[2018-03-10] MEDS: Aspirin 81 MG TAB.CHEW PO SCH (09:47)
[2018-03-10] MEDS: cefTRIAXone 1,000 MG in Water for inj. (sterile) 20 ML 10 ML IVP SCH (09:47)
--- NOTE | 2018-03-10 11:58 | Discharge Summary ---
- NOTES TO OUTPATIENT PROVIDER Notes to Outpatient Provider: follow up with Dr. Abernathy as OP. follow up with PCP Orders not resulted at time of discharge: Pending orders 03/10/18 11:51 CXR, portable [XR chest 1V portable] [XR] Stat Date of Encounter: 03/10/18 Time of Encounter: 11:53 - Discharge Diagnosis (1) Flash pulmonary edema Priority: Primary Status: Acute (2) Acute respiratory failure with hypoxia Priority: Secondary Status: Acute (3) Acute on chronic heart failure with reduced ejection fraction and diastolic dysfunction Priority: Secondary Status: Acute (4) CAP (community acquired pneumonia) Priority: Secondary Status: Acute Qualifiers: Laterality: unspecified laterality Qualified Code(s): J18.9 - Pneumonia, unspecified organism (5) Elevated troponin I level Priority: Secondary Status: Acute (6) HTN (hypertension) Priority: Secondary Status: Acute Qualifiers: Hypertension type: essential hypertension Qualified Code(s): I10 - Essential (primary) hypertension (7) Afib Priority: Secondary Status: Chronic Qualifiers: Atrial fibrillation type: paroxysmal Qualified Code(s): I48.0 - Paroxysmal atrial fibrillation (8) Obesity (BMI 30-39.9) Priority: Secondary Status: Acute (9) GARFIELD on CPAP Priority: Secondary Status: Acute (10) DVT prophylaxis Priority: Secondary Status: Acute Hospital course: Mr. Chester is a 62 year old male with history of cardiomyopathy status post AICD/ biventricular pacer, A. fib on xarelto presented to the emergency department with shortness of breath. He reported that his shortness of breath started suddenly while he was at his grandson's basketball game. On presentation he was hypoxic in the 85% on nonrebreather mask. In the ED was placed on BiPAP and received 80 mg of Lasix along with nitroglycerin drip which improved his symptoms significantly. he was admitted for further management of flash pulmonary edema. He was transitioned from IV Lasix to by mouth Lasix as his respiratory status improved. Troponin was mildly elevated on admission at 0.1 and trended up 2.14. Cardiology was consulted and left heart catheter was performed on 03/09 which showed There is three vessel ectatic coronary artery disease. Echocardiogram performed- full report below. His home Lasix dose was increased and he was counseled on importance of fluid restriction diet and exercise. He is to continue using his CPAP for GARFIELD. He demonstrated a good cytosis on admission which was most likely reactive however chest x-ray on admission showed Superimposed left basilar atelectasis or airspace disease. Urine antigens were negative. He was started on IV antibiotics and transitioned to by mouth antibiotics on discharge to complete a seven-day course. Influenza was negative. He reports that he is up-to-date with his pneumonia and influenza vaccination. Chest x-ray was repeated which showed Cardiology cleared the patient for discharge. I discussed above with and patient and they are in agreement. For PCP to continue to monitor BMP for electrolytes. Post catheter limitations were discussed by the cardiology team with the patient and . TTE: LVEF 30%. Severely dilated left ventricle. Severe global left ventricular systolic dysfunction. Moderate left ventricular diastolic dysfunction. Moderately dilated left atrium. Normal right ventricular structure and function. Mild mitral regurgitation. Unable to estimate RVSP due to lack of TR jet. Discharge discussed with: patient, family, nurse, recruiting operations consultant - Time Spent with Patient Total time spent providing and/or coordinating discharge services: Greater than 30 minutes (40) - Discharge Medications Prescriptions: Doxycycline 100 mg PO BID 5 Days #10 capsule Furosemide [Lasix] 40 mg PO DAILY #30 tablet Home Medications: Amiodarone [Cordarone] 100 mg PO DAILY 01/09/15 [History] Atorvastatin [Lipitor] 40 mg PO HS 01/09/15 [History] Carvedilol 12.5 mg PO BID 01/09/15 [History] Losartan [Cozaar] 50 mg PO BID 01/09/15 [History] Nitroglycerin [Nitrostat] 0.4 mg SL Q5-6MIN PRN 01/09/15 [History] Rivaroxaban [Xarelto] 20 mg PO DAILY 01/09/15 [History] Spironolactone [Aldactone] 12.5 mg PO DAILY 01/09/15 [History] Doxycycline 100 mg PO BID 5 Days #10 capsule 03/10/18 [Rx] Furosemide [Lasix] 40 mg PO DAILY #30 tablet 03/10/18 [Rx] Allergies/Adverse Reactions: Allergy/AdvReac Type Severity Reaction Status Date / Time Penicillins [PCN] Allergy Rash Verified 01/09/15 11:28 lisinopril AdvReac Cough Verified 01/09/15 11:28 Date of admission: 12/16/18 14:50 Primary care physician: Akash Beth MD Consults: 03/08/18 07:41 Consult to Cardiology [CONS] Routine Comment: Consulting Provider: Cardiology Danielle Reason for Consult: flash pulm edema, elevated troponins Call Completed: No - Constitutional Vitals: Temp Pulse Resp BP Pulse Ox 98.0 F 81 25 123/95 94 03/10/18 07:08 03/10/18 07:08 03/10/18 07:08 03/10/18 07:08 03/10/18 07:08 Exam: General: Patient is alert, oriented, no acute distress, obese, speaks in full sentences Head: atraumatic, normocephalic, Eye: normal appearance, PERRL, no scleral icterus, no conjunctival injection ENT: mucous membranes moist, normal external ear exam Neck: normal inspection, trachea midline, full ROM, no carotid bruits Chest: normal inspection, symmetric chest rise Respiratory: Distant breath sounds secondary to body habitus, no crackles , no wheezing Cardiovascular: Distant heart sounds secondary to body habitus, Regular rate and rhythm. s1 and s2 No clicks, rubs, gallops, or murmors. Abdomen: Bowel sounds present normoactive x-4 quadrants. Abdomen is soft, nondistended. no Epigastric tenderness. No guarding or rebound. No organomegaly noted, obese musculoskeletal: Spontaneously moving all extremities. no edema, no calf tenderness Skin: warm, dry, intact. Neuro: Alert and oriented x4. No focal deficit Psych: Patient's affect is normal - Patient Status Disposition: Home, Self-Care Condition: Fair Functional capacity at discharge: independent ambulation Overall status at discharge: patient is progressing back to baseline - Discharge Instructions Instructions: Pulmonary Edema (DC) Follow Up With: Akash Beth MD [Primary Care Provider] - 03/18/18 1:15 pm Forms: ED Satisfaction Letter Additional Instructions: Return to work in 2 weeks. No driving for 3 days after procedure. - Diet and Activity Activity: increase activity as tolerated Diet: other (Cardiac,fluid restriction)
[2018-03-10] MEDS ORDERED: Doxycycline 100 MG CAPSULE PO SCH (12:00)
== END 2018-03-10 13:23 | disposition home or self-care (01) | DRG 280 ==
LOC: 2NENU 21:22 → EMEROOARM 21:22 → SUATTDRO 03-08 00:13 → 2NENU 03-08 01:25
PROVIDERS: ADMIT Internal Medicine; ATTEND Internal Medicine